=== PATIENT | female | born 1950 | race Two or more races ===

== ENCOUNTER 2024-12-23 16:07 | Inpatient (IN) | payer OTHER, MEDICAID ==
[~2024-12-23] VITALS: Ht 152.4 cm; Wt 63.5 kg
[2024-12-23 16:30] LABS: PLATELET COUNT (AUTO) 212 K/uL (179-408); RED BLOOD CELL COUNT(AUTO) 4.16 MIL/uL (3.63-4.92); RED CELL DISTRIBUTION WIDTH 15.7 % (12.3-17.7); WHITE BLOOD COUNT (AUTO) 6.8 K/uL (3.8-11.8)
[2024-12-23 16:46] LABS: CREATININE 0.7 mg/dL (0.6-1.3); SODIUM SERUM 141 mmol/L (136-145); UREA NITROGEN, BLOOD 25 mg/dL (7-18)
[2024-12-23] MEDS ORDERED: ONDANSETRON 4 MG/2 ML VIAL ONE (18:10)
[2024-12-23] MEDS ORDERED: MORPHINE SULFATE 2 MG/1 ML DISP.SYRIN ONE (18:10)
[2024-12-23] MEDS: ONDANSETRON 4 MG/2 ML VIAL IV ONE (18:17)
[2024-12-23] MEDS: MORPHINE SULFATE 2 MG/1 ML DISP.SYRIN IV ONE (18:17)
[2024-12-23] MEDS ORDERED: TRAM50TA2 PO (18:23)
[2024-12-23] MEDS ORDERED: ONDANSETRON 4 MG/2 ML VIAL IV PRN (19:00)
[2024-12-23] MEDS ORDERED: ACETAMINOPHEN 325 MG TABLET PO PRN (19:00)
[2024-12-23] MEDS ORDERED: DEXTROSE 50% 50 ML DISP.SYRIN IV PRN (19:00)
[2024-12-23] MEDS ORDERED: HYDROCODONE/APAP 5-325MG TABLET PO PRN (19:00)
[2024-12-23 20:55] VITALS: BP 137/85
[2024-12-23] MEDS: BLOOD SUGAR DIAGNOSTIC 1 EACH STRIP VI SCH (21:00)
[2024-12-23] MEDS: MORPHINE SULFATE 2 MG/1 ML DISP.SYRIN IV PRN (22:03)
[2024-12-23] MEDS: DOCUSATE SODIUM 250 MG CAPSULE PO SCH (22:03)
[2024-12-23] MEDS: ENOXAPARIN SODIUM 40 MG/0.4 ML DISP.SYRIN SQ SCH (22:13)
[2024-12-23] MEDS: INSULIN REGULAR, HUMAN 1000 UNIT/10 ML VIAL SQ PRN (22:26)
[2024-12-23 22:30] VITALS: BP 151/79; TEMP 98; O2SAT 98
[2024-12-24 04:38] VITALS: BP 120/62; TEMP 97.8; O2SAT 98
[2024-12-24 06:45] LABS: PLATELET COUNT (AUTO) 196 K/uL (179-408); RED BLOOD CELL COUNT(AUTO) 4.06 MIL/uL (3.63-4.92); RED CELL DISTRIBUTION WIDTH 15.8 % (12.3-17.7); WHITE BLOOD COUNT (AUTO) 4.7 K/uL (3.8-11.8)
[2024-12-24 07:11] LABS: CREATININE 0.6 mg/dL (0.6-1.3); SODIUM SERUM 143 mmol/L (136-145); UREA NITROGEN, BLOOD 18 mg/dL (7-18)
[2024-12-24] MEDS ORDERED: HYDROCODONE/APAP 5-325MG TABLET PO PRN (10:30)
[2024-12-24] MEDS: METFORMIN HCL 500 MG TABLET PO SCH (11:08)
[2024-12-24] MEDS: TRAMADOL HCL 50 MG TABLET PO PRN (11:09)
[2024-12-24] MEDS: LISINOPRIL 5 MG TABLET PO SCH (11:09)
[2024-12-24] MEDS ORDERED: PRED-170 PO (11:29)
[2024-12-24] MEDS ORDERED: METF-441 PO (11:29)
[2024-12-24] MEDS ORDERED: LISI20TA30 PO (11:30)
[2024-12-24] MEDS ORDERED: DULO20CA PO (11:31)
[2024-12-24] MEDS ORDERED: AZAT50TA18 PO (11:31)
[2024-12-24] MEDS ORDERED: CHOL500062 PO (11:32)
[2024-12-24] MEDS ORDERED: CHOL10005 PO (11:33)
[2024-12-24] MEDS ORDERED: MAGN400C PO (11:34)
[2024-12-24 11:35] VITALS: BP 121/68; TEMP 98; O2SAT 97
[2024-12-24 15:58] VITALS: BP 146/66; TEMP 98.3; O2SAT 97
[2024-12-24 19:23] VITALS: BP 128/70; TEMP 98.3; O2SAT 98
[2024-12-25 05:37] VITALS: BP 136/70; TEMP 97.8; O2SAT 98
[2024-12-25] MEDS ORDERED: DULOXETINE 20 MG CAPSULE.DR PO PRN (08:00)
[2024-12-25] MEDS: CHOLECALCIFEROL 1,000 UNIT TABLET PO SCH (10:23)
[2024-12-25] MEDS: LISINOPRIL 20 MG TABLET PO SCH (10:23)
[2024-12-25] MEDS: MAGNESIUM OXIDE 400 MG TABLET PO SCH (10:23)
[2024-12-25 11:24] VITALS: BP 157/84; TEMP 98.8; O2SAT 96
[2024-12-25] MEDS: METFORMIN HCL 850 MG TABLET PO SCH (11:56)
[2024-12-25] MEDS: AZATHIOPRINE 50 MG TABLET PO SCH (11:56)
[2024-12-25 15:37] VITALS: BP 144/72; TEMP 98.4; O2SAT 93
[2024-12-25 19:24] VITALS: BP 159/88; TEMP 98.2; O2SAT 97
[2024-12-25] MEDS: TEMAZEPAM 7.5 MG CAPSULE PO PRN (21:07)
[2024-12-26 05:37] VITALS: BP 148/77; TEMP 97.6; O2SAT 98
[2024-12-26 07:52] VITALS: BP 137/77; TEMP 98.6; O2SAT 96
[2024-12-26 11:03] VITALS: BP 146/73; TEMP 98.4; O2SAT 97
[2024-12-26 15:14] VITALS: BP 147/75; TEMP 98.4; O2SAT 95
[2024-12-26 19:19] VITALS: BP 162/94; TEMP 98.1; O2SAT 99
[2024-12-27 05:22] VITALS: BP 146/75; TEMP 97.3; O2SAT 100
[2024-12-27 11:33] VITALS: BP 153/76; TEMP 97.8; O2SAT 95
[2024-12-27 15:41] VITALS: BP 143/86; TEMP 97.8; O2SAT 99
== END 2024-12-27 16:37 | DRG 536 ==
LOC: ER 17:09 → MEDSURG3 21:30
PROVIDERS: ADMIT Nurse Practitioner Acute Care; ATTEND Nurse Practitioner Acute Care
DX: S32.591A Other specified fracture of right pubis, initial encounter for closed fracture (principal); D68.59 Other primary thrombophilia; W01.0XXA Fall on same level from slipping, tripping and stumbling without subsequent striking against object, initial encounter; Y93.E9 Activity, other interior property and clothing maintenance; Y92.009 Unspecified place in unspecified non-institutional (private) residence as the place of occurrence of the external cause; G89.29 Other chronic pain; Z74.09 Other reduced mobility; Z88.5 Allergy status to narcotic agent; Z88.3 Allergy status to other anti-infective agents; Z88.2 Allergy status to sulfonamides; M79.7 Fibromyalgia; E11.9 Type 2 diabetes mellitus without complications
CPT/HCPCS: 36415; 72170; 73560; 73700; 83735; 84100; 85025; G0378; J1650; J2270; J2405; J7040; J7500; J7512